=== PATIENT | female | born 1995 | race Native Hawaiian/Other Pacific Islander ===

== ENCOUNTER 2018-11-17 12:29 | Outpatient (CLI) | payer OTHER ==
[2018-11-17 13:15] LABS: PLATELET COUNT 242 K/uL (152-353)
== END 2018-11-17 23:36 | disposition home or self-care (01) ==
LOC: LAB 12:29
PROVIDERS: Internal Medicine Gastroenterology
DX: B18.2 Chronic viral hepatitis C (principal)
CPT/HCPCS: 36415; 80074; 80076; 85027; 87522